=== PATIENT | female | born 1965 | race Caucasian/White ===

== ENCOUNTER → 2023-06-28 07:17 | Outpatient (REF) | payer BC, SELFPAY | LOC: HWRAD 07:17 | PROVIDERS: ATTENDING PHYSICIAN Family Medicine; REFERRING PHYSICIAN Specialist | DX: L72.11 Pilar cyst (principal) | CPT/HCPCS: 76536 ==

== ENCOUNTER → 2023-08-09 08:03 | Outpatient (REF) | payer BC, SELFPAY | LOC: HWRAD 08:03 | PROVIDERS: ATTENDING PHYSICIAN Specialist; FAMILY PHYSICIAN Family Medicine | DX: R22.0 Localized swelling, mass and lump, head (principal) | CPT/HCPCS: 70492; Q9967 ==

== ENCOUNTER → 2024-04-08 15:35 | Outpatient (REF) | payer BC, SELFPAY | LOC: RAD 15:35 | PROVIDERS: ATTENDING PHYSICIAN Family Medicine | DX: R22.1 Localized swelling, mass and lump, neck (principal) | CPT/HCPCS: 76536 ==

== ENCOUNTER → 2024-05-30 10:06 | Outpatient (REF) | payer BC, SELFPAY | LOC: WDC 10:06 | PROVIDERS: ATTENDING PHYSICIAN Family Medicine | DX: Z12.31 Encounter for screening mammogram for malignant neoplasm of breast (principal) | CPT/HCPCS: 77063; 77067 ==

== ENCOUNTER → 2024-09-24 08:22 | Outpatient (REF) | payer BC, SELFPAY | LOC: RAD 08:22 | PROVIDERS: ATTENDING PHYSICIAN Internal Medicine Endocrinology, Diabetes & Metabolism; FAMILY PHYSICIAN Family Medicine | DX: M85.80 Other specified disorders of bone density and structure, unspecified site (principal) | CPT/HCPCS: 77080 ==

== ENCOUNTER 2025-03-23 06:14 | Day surgery (SDC) | payer BC, SELFPAY ==
[2025-03-02 09:08] LABS: Hematocrit 35.1 % (37.0-47.0); Hemoglobin 11.0 g/dL (12.0-16.0); Mean Corp Hgb Conc. 31.3 g/dL (33.0-37.0); Mean Corpuscular Volume 86.5 fL (81.0-99.0); Platelet Count 264 10^3/uL (130-400); Red Cell Dist. Width 13.1 % (11.5-14.5)
[2025-03-02 09:14] LABS: INR 1.02; PT 13.7 Sec (11.4-14.6)
[2025-03-02 09:15] LABS: APTT 27.6 Sec (23.4-35.0)
[2025-03-02 09:46] LABS: ALT (SGPT) 19 U/L (0-35); AST (SGOT) 26 U/L (14-36); Albumin 4.4 g/dl (3.5-5.0); Alkaline Phosphatase 89 U/L (38-126); Blood Urea Nitrogen 14 mg/dl (7-17); Calcium 10.3 mg/dl (8.4-10.2); Carbon Dioxide 28 mmol/L (22-30); Chloride 107 mmol/L (98-107); Glucose 81 mg/dl (70-99); Potassium 4.0 mmol/L (3.5-5.1); Sodium 141 mmol/L (135-145); Total Protein 6.9 g/dl (6.3-8.2); eGFR > 60.00
[2025-03-02 13:55] VITALS: BMI 26.8
[2025-03-23] VITALS (10 sets, daily range): BP systolic 98–122; BP diastolic 60–72; BMI 26.8
[2025-03-23] MEDS: TYLENOL 1000 MG PO (10:25)
[2025-03-23] MEDS: NORMOSOL-R/PLASMALYTE-A 1000 IV (10:25)
[2025-03-23] MEDS: NEURONTIN 300 MG PO (10:25)
[2025-03-23] MEDS: TRANSDERM-SCOP 1 PATCH TRANSDERM (10:31)
[2025-03-23] MEDS: HEPARIN 5000 UNITS SC (10:45)
[2025-03-23 12:17] LABS: Turbo PTH 240.6 pg/ml (14.5-75.2)
--- NOTE | 2025-03-23 12:43 | OR.RPT ---
Operative Report
Operative Report
Date of Operation: March 23, 2025
Preoperative Diagnosis: Hyperparathyroidism - E210
Postoperative Diagnosis: Same
Surgeon: Junior Lowry M.D.
Operation: Minimally Invasive Right Superior Parathyroidectomy - [id number]
Anesthesia: GET
Estimated Blood Loss: 1 cc
Drains: None
Specimen: Right Superior neck nodule, rule out parathyroid adenoma
Complications: None
Procedure:
The patient was taken to the operating room and placed in the usual supine position. After adequate general endotracheal anesthesia was established, the patient's neck was extended, prepped, and draped in the typical sterile fashion. A 4 cm
transcervical incision was made two fingerbreadths above the sternal notch. The skin incision was made with the #15 blade, and this was taken through the skin into the subcutaneous tissue. The underlying platysma muscle was divided, and subplatysmal
flaps were created superiorly to the thyroid cartilage and inferiorly to the sternal notch. Strap muscles were identified and at the midline.
Attention was turned to the patient's right side of the neck. The right thyroid lobe was mobilized medially. During this process, the right recurrent laryngeal nerve was identified and preserved throughout the surgery. The right upper neck nodule
was identified and noted to be enlarged, excised, and sent to the pathology department, which showed a hypercellular parathyroid gland. The normal-appearing right lower parathyroid gland was identified and preserved. The intraoperative PTH levels
normalized.
After obtaining adequate hemostasis, the strap muscles were reapproximated with #3-0 Vicryl in a running fashion. The platysma muscle was reapproximated with #3-0 Vicryl in an interrupted fashion, and the skin was approximated with #4-0 Monocryl in
a running subcuticular fashion. The Steri-Strips and sterile dressings were placed. The patient tolerated the procedure well. The final instrument, needle, and sponge counts were correct. The patient was extubated and transferred to the PACU.
[2025-03-23 13:02] LABS: Turbo PTH 62.4 pg/ml (14.5-75.2)
[2025-03-23] MEDS: ZOFRAN 4 MG IV (15:32)
== END 2025-03-23 16:00 | disposition home or self-care (01) ==
LOC: SDS 06:14
PROVIDERS: ATTENDING PHYSICIAN Surgery; FAMILY PHYSICIAN Family Medicine
DX: E21.0 Primary hyperparathyroidism (principal); E21.3 Hyperparathyroidism, unspecified; R22.1 Localized swelling, mass and lump, neck
CPT/HCPCS: 60500; 80053; 83970; 85027; 85610; 85730; 88305; 88331; 93005